=== PATIENT | male | born 1970 | race Hispanic/Latino ===

== ENCOUNTER → 2023-02-03 | Outpatient (CLI) | payer MEDICARE ==
[2023-02-03 14:25] LABS: BASOPHILS % (AUTO) 0.9 % (0.0-5.0); EOSINOPHILS % (AUTO) 7.9 % (0.0-8.0); HEMATOCRIT 38.7 % (42-54); LYMPHOCYTES % (AUTO) 19.3 % (21.0-51.0); MEAN CORPUSCULAR HEMOGLOBIN 32.9 pg (27.0-33.0); MEAN CORPUSCULAR HGB CONC 33.1 g/dL (32.0-36.0); MEAN CORPUSCULAR VOLUME 99.5 fL (79-99); MONOCYTES % (AUTO) 10.7 % (3.0-13.0); NEUTROPHILS % (AUTO) 60.9 % (40.0-77.0); PLATELET COUNT (AUTO) 153 K/uL (130-400); RED BLOOD CELL COUNT(AUTO) 3.89 MIL/uL (4.50-6.20); RED CELL DISTRIBUTION WIDTH 13.1 % (11.0-15.5); WHITE BLOOD COUNT (AUTO) 6.5 K/uL (4.8-10.8)
[2023-02-03 14:37] LABS: INR 0.93 (0.85-1.15); PROTHROMBIN TIME 10.1 SEC (9.6-11.6)
[2023-02-03 14:38] LABS: PARTIAL THROMBOPLASTIN TIME 30.9 SEC (26.3-35.5)
[2023-02-03 14:40] LABS: ALBUMIN 2.7 g/dL (3.5-5.0); CREATININE 1.6 mg/dL (0.5-1.5); POTASSIUM 4.8 mmol/L (3.5-5.1)
== END | disposition home or self-care (01) ==
LOC: LAB 13:36
PROVIDERS: ATTEND Internal Medicine
DX: R93.5 Abnormal findings on diagnostic imaging of other abdominal regions, including retroperitoneum (principal); Z01.810 Encounter for preprocedural cardiovascular examination; K74.60 Unspecified cirrhosis of liver; R18.8 Other ascites
CPT/HCPCS: 36415; 80053; 82105; 85025; 85610; 85730

== ENCOUNTER → 2023-02-08 | Outpatient (CLI) | payer MEDICARE ==
[~2023-02-08] MED LIST: GADOTERATE MEGLUMINE 10 MMOL/20 ML VIAL IV ONE
== END | disposition home or self-care (01) ==
LOC: EDUNIT# 10-31 13:00 → RAH 08:57
PROVIDERS: ATTEND Internal Medicine
DX: K76.89 Other specified diseases of liver (principal); K63.89 Other specified diseases of intestine; R16.1 Splenomegaly, not elsewhere classified; R18.8 Other ascites; R93.2 Abnormal findings on diagnostic imaging of liver and biliary tract
CPT/HCPCS: 74183; A9575

== ENCOUNTER 2024-07-05 13:20 | Emergency (ER) | payer MEDICARE ==
[~2024-07-05] VITALS: Ht 162.6 cm; Wt 64.9 kg
[2024-07-05 14:05] LABS: HEMATOCRIT 31.3 % (42-54); MEAN CORPUSCULAR HEMOGLOBIN 33.1 pg (27.0-33.0); MEAN CORPUSCULAR HGB CONC 32.6 g/dL (32.0-36.0); MEAN CORPUSCULAR VOLUME 101.6 fL (79-99); PLATELET COUNT (AUTO) 107 K/uL (130-400); RED BLOOD CELL COUNT(AUTO) 3.08 MIL/uL (4.50-6.20); RED CELL DISTRIBUTION WIDTH 13.8 % (11.0-15.5); WHITE BLOOD COUNT (AUTO) 5.3 K/uL (4.8-10.8)
[2024-07-05 14:19] LABS: INR 0.98 (0.85-1.15); PROTHROMBIN TIME 10.6 SEC (9.6-11.6)
[2024-07-05 14:20] LABS: PARTIAL THROMBOPLASTIN TIME 29.9 SEC (26.3-35.5)
[2024-07-05] MEDS: ALBUMIN (HUMAN) 25% 200 ML IV SCH (14:22)
[2024-07-05 14:26] LABS: ALBUMIN 2.2 g/dL (3.5-5.0); CREATININE 1.6 mg/dL (0.5-1.3); POTASSIUM 3.8 mmol/L (3.5-5.1); TOTAL PROTEIN, SERUM 6.9 g/dL (6.0-8.3)
--- NOTE | 2024-07-05 14:29 | HMCIMG ---
US ABDOMINAL PARACENTESIS IR REASON: paracentesis TECHNIQUE: Limited 4 quadrant ultrasound was performed. Largest ascites pocket was identified in the left lower quadrant and overlying skin marked for paracentesis. IMPRESSION: 1. Ultrasound guidance for paracentesis procedure.
[2024-07-05] MEDS ORDERED: ALBUMIN (HUMAN) 25% 200 ML IV SCH (15:00)
[2024-07-05 15:03] VITALS: BP 161/68; PULSE 104; RESP 16; TEMP 97.9; O2SAT 100
[2024-07-05] MEDS: ALBUMIN (HUMAN) 25% 100 ML IV PRN (15:41)
[2024-07-05] MEDS: ALBUMIN (HUMAN) 25% 100 ML IV ONE (15:42)
--- NOTE | 2024-07-05 15:46 | ERN ---
General Chief Complaint: Shortness of Breath Stated Complaint: SOB Time Seen by MD: 13:29 Source: patient History of Present Illness Initial Comments This is a case of a 53-year-old male with a past medical history of asthma, diabetes mellitus type 2, high cholesterol, hypertension, cirrhosis who presented to the ER with the complaints of abdominal distention and pain since 10 days. He mentions having experienced similar episodes in the past, but has had not any in the last year and a half. He has not undergone any paracentesis or consulted any doctors in the past year regarding this condition. However over the last 10 days, he has noticed increased abdominal distention, along with intermittent right upper quadrant pain mainly after eating and generalized itching throughout his body. He denies fever, chills, headaches, chest pain, palpitations, nausea, vomiting, diarrhea, burning sensation when urinating or increased frequency of urination. Vitals temperature 97.9, pulse rate 104, respiratory rate 16, blood pressure 161/68, SpO2 100% on room air. Allergies: Coded Allergies: iodine (Unverified Allergy, Severe, SWELLING, 07/05/24) Past Medical History Past Medical History: Asthma, Diabetes-Type II, High Cholesterol, Hypertension, Liver Disease Past Surgical History: Other Surgical History Other: ABD HERNIA REPAIR ROS Dictation Constitutional: No appetite loss, No fevers, chills , No night sweats, No weakness, fatigue, itching all over the body Neck: No swelling. pain or stiffness Respiratory: No cough, shortness of breath, wheezing Cardiovascular: No chest pain,, palpitations, dyspnea, No edema Gastrointestinal: Intermittent right upper quadrant pain No nausea, vomiting, No diarrhea, constipation Genitourinary: No painful urination, No blood in urine, No urinary incontinence, No frequency or urgency Musculoskeletal: No joint pain, muscle pain, swelling or stiffness, Neurological: No numbness, tingling, No weakness, tremors or seizures Psychiatric: : No depression, No anxiety, No sleep disturbance, No Memory changes Physical Exam Physical Exam Dictation General: Alert & Oriented, No acute distress. EENT: No conjunctival redness or discharge noted . Neck: Non-tender, No jugular vein distention, No lymphadenopathy, No thyromegaly, Supple. Respiratory: Lungs are clear to auscultation, Respirations are non-labored, Breath sounds are equal, Cardiovascular: Normal rate, Normal rhythm, No murmur, Good pulses equal in all extremities, Gastrointestinal: Soft, mild tenderness over right upper quadrant area, Non- distended, Normal bowel sounds, No organomegaly, _. Musculoskeletal: No decreased range of motion, no decreased strength, no deformity and no abnormal gait Integumentary: Warm, Dry, Oil Trough, Intact, No pallor, No rash. Neurologic: Alert, Oriented x4, Normal sensory, No focal defects Psychiatric: Cooperative, Appropriate mood & affect, Normal judgement, Non- suicidal. Results Laboratory and Microbiology Lab and Micro Result Laboratory Tests Test 07/05/24 13:57 07/05/24 15:30 White Blood Count 5.3 K/uL (4.8-10.8) Red Blood Count 3.08 MIL/uL (4.50-6.20) L Hemoglobin 10.2 g/dL (14.0-18.0) L Hematocrit 31.3 % (42-54) L Mean Corpuscular Volume 101.6 fL (79-99) H Mean Corpuscular Hemoglobin 33.1 pg (27.0-33.0) H Mean Corpuscular Hemoglobin Concent 32.6 g/dL (32.0-36.0) Red Cell Distribution Width 13.8 % (11.0-15.5) Platelet Count 107 K/uL (130-400) L Mean Platelet Volume 12.0 fL (7.5-10.5) H Immature Granulocyte % (Auto) 0.2 % (0-1) Neutrophils (%) (Auto) 64.5 % (40.0-77.0) Lymphocytes (%) (Auto) 16.7 % (21.0-51.0) L Monocytes (%) (Auto) 8.9 % (3.0-13.0) Eosinophils (%) (Auto) 8.7 % (0.0-8.0) H Basophils (%) (Auto) 1.0 % (0.0-5.0) Neutrophils # (Auto) 3.2 K/uL (1.8-7.7) Lymphocytes # (Auto) 0.8 K/uL (1.0-4.8) L Monocytes # (Auto) 0.4 K/uL (0.1-1.0) Eosinophils # (Auto) 0.43 K/uL (0.00-0.70) Basophils # (Auto) 0.05 K/uL (0.00-0.20) Absolute Immature Granulocyte (auto 0.01 K/uL (0-1) Nucleated Red Blood Cells 0.0 % (0.0-0.19) Prothrombin Time 10.6 SEC (9.6-11.6) Prothromb Time International Ratio 0.98 (0.85-1.15) Activated Partial Thromboplast Time 29.9 SEC (26.3-35.5) Sodium Level 138 mmol/L (136-145) Potassium Level 3.8 mmol/L (3.5-5.1) Chloride Level 107 mmol/L (101-111) Carbon Dioxide Level 22 mmol/L (21-32) Blood Urea Nitrogen 17 mg/dL (7-18) Creatinine 1.6 mg/dL (0.5-1.3) H Glomerular Filtration Rate Calc 51 mL/min (>90) Random Glucose 162 mg/dL (70-105) H Total Calcium 8.6 mg/dL (8.5-10.1) Total Bilirubin 1.0 mg/dL (0.2-1.0) Direct Bilirubin 0.5 mg/dL (0.0-0.3) H Aspartate Amino Transf (AST/SGOT) 53 U/L (10-37) H Alanine Aminotransferase (ALT/SGPT) 40 U/L (12-78) Alkaline Phosphatase 499 U/L (50-136) H Total Protein 6.9 g/dL (6.0-8.3) Albumin 2.2 g/dL (3.5-5.0) L Body Fluid Source ASCITES Body Fluid Volume 8000 mL Body Fluid Color YELLOW (LT YELLOW) Body Fluid Supernatant Appearance SLIGHTLY CLOUDY (CLEAR) Body Fluid WBC 56 /cu. mm. Body Fluid RBC 0 /cu. mm. Body Fluid Total Protein < 2.0 g/dL Body Fluid Albumin < 0.6 g/dL Labs Reviewed?: Yes EKG/XRAY/US/CT/MRI CT Scan Comment PROCEDURE: ABD PEL WO - CT ABDOMEN/PELVIS W/O CONTRAST CT ABDOMEN/PELVIS W/O CONTRAST REASON: Suspected biliary obstruction, gallstones, cirrhosis COMPARISON: None. FINDINGS: Lung bases are clear. There is nodular hepatic surface contour. There is splenomegaly. There is small to moderate volume of ascites. These findings suggest probable cirrhosis.. There are no focal liver lesions. Kidneys appear unremarkable.. Pancreas appears unremarkable. Gallbladder is contracted. There are no visible stones. Bowel loops appear unremarkable. This includes normal appearance of the appendix There is no evidence of free fluid or intraperitoneal air. There are no focal fluid collections. Aorta and retroperitoneum appear normal as do pelvic soft tissue structures. The anterior abdominal wall is intact. Osseous structures appear unremarkable. IMPRESSION: 1. Nodular liver, splenomegaly and moderate ascites suggesting cirrhosis. 2. Gallbladder is contracted, there are no visible gallstones. 3. Otherwise unremarkable exam. MDM MDM Potential differential diagnoses include: Cirrhosis Hepatitis Assessment: We will order CBC was done in order to to rule any anemia, infections and to evaluate the overall health of the patient. CMP was ordered in order to assess various electrolytes, kidney function, liver function ,protein levels and blood glucose levels, CT of the abdomen/pelvis to rule out any acute conditions and we will administer medications according to the patient's complaint. We will order morphine 4 mg IV for adequate pain control. I will re-evaluate the patient after treatment and diagnostic exams have returned to determine whether they require further testing, can be safely discharged home, or need admission for further treatment and evaluation. Given the social determinants of health affecting care, including literacy, access to medical care, prescription drug management, and [id number] drugs, I will ensure that treatment plans are tailored accordingly. Revaluation : Patient tolerated the paracentesis very well he states that he is breathing more easily now. His labs are unremarkable, if in his bilirubin in his within normal range. He has no signs of infection. CT scan shows no obvious masses in the liver. Patient has a ascites. Patient also has calcification in all of his major arteries including a celiac splenic aorta internal iliacs superficial femoral and deep femoral arteries. We have ordered hepatitis-C and B serologies once those are back we will discharge the patient. Disposition: The patient does not need to be admitted to the hospital however he does need to follow up with his primary care physician and also a director staffing. It is not clear why he has ascites improved and then decompensated. The states that he has not resumed drinking. Advised to follow up with PCP within 2-3 days Consult director staffing for further workup and management within 1 week Avoid salty foods like canned soups, processed meats and fast foods Avoid alcohol Avoids hepatotoxic medications like NSAIDs [ibuprofen, naproxen] Advised to call 911 or return to ER in case of exacerbation of current symptoms or new symptoms like shortness of breath, vomiting, black, tarry stools, confusion, drowsiness and behavioral changes ED Course Orders Procedure Category Date Status Time Pt And Ptt LAB 07/05/24 Complete 13:47 Comprehensive LAB 07/05/24 Complete Metabolic Panel 13:47 Albumin (Human) 25% PHA 07/05/24 Complete (Plasbumin-25) 14:00 Us Abdominal US 07/05/24 Resulted Paracentesis Ir 14:05 Cbc With Differential LAB 07/05/24 Complete 13:57 Albumin (Human) 25% PHA 07/05/24 Complete (Albumin (Human) 25% 15:00 Body Fluid Cell Count LAB 07/05/24 In Process 15:08 Total Protein,Body LAB 07/05/24 In Process Fluid 15:08 Albumin Body Fluid LAB 07/05/24 In Process 15:08 Ct Abdomen/Pelvis W/O CT 07/05/24 Resulted Contrast 15:21 Albumin (Human) 25% PHA 07/05/24 Complete (Plasbumin-25) 15:33 Albumin (Human) 25% PHA 07/05/24 In Process (Plasbumin-25) 16:00 Acute Hepatitis Panel LAB 07/05/24 In Process 15:47 Bilirubin,Direct LAB 07/05/24 Complete 13:57 Aerobic Culture MYLA 07/05/24 Logged 16:01 Anaerobic Culture MYLA 07/05/24 Logged 16:01 Current Medications Medications (Trade) Dose Ordered Sig/Suresh Route PRN Reason Start Time Stop Time Status Last Admin Dose Admin Albumin Human 100 ml @ 100 mls/hr AD PRN IV INCREASED BLOOD PRESSURE 07/05/24 16:00 07/06/24 15:59 07/05/24 15:41 Albumin Human 100 ml @ As Directed STK-MED ONCE IV 07/05/24 15:33 07/05/24 15:33 DC Albumin Human 200 ml @ 0 mls/hr AD IV 07/05/24 15:00 07/05/24 15:03 DC Albumin Human 200 ml @ 0 mls/hr ONCE IV 07/05/24 14:00 07/05/24 15:03 DC 07/05/24 14:22 Vital Signs Date Time Temp Pulse Resp B/P (MAP) Pulse Ox O2 Delivery O2 Flow Rate FiO2 07/05/24 15:03 97.9 104 16 161/68 100 Room Air* 0 21 07/05/24 13:22 97.7 102 20 157/91 99 Room Air 07/05/24 13:22 97.7 102 20 157/91 99 Room Air* 0 21 Procedure Dictation Procedure: paracentesis Indication: Ascites for diagnostic, therapeutic purposes and abdominal distention relief Consent:Consent was obtained from the patient after discussing the risks, benefits, and alternatives to the procedure the patient understood and agreed to proceed Procedure details The patient was placed in the supine position.The abdomen was examined and left lower quadrant was chosen for paracentesis through ultrasound. The area was marked, cleaned with antiseptic solution and draped in a sterile manner Local anesthesia was achieved with 1% lidocaine, which was infiltrated into the skin, subcutaneous tissue and peritoneum at the chosen puncture site A needle was connected to a syringe was used to enter the peritoneal cavity. Once fluid was aspirated the catheter was advanced over the needle and secured in place Around 10.4L of ascitic fluid was drained without complication.The fluid was str aw-colored, clear. Fluid samples were sent for cell count, albumin, cytology and culture Catheter was removed and the sterile dressing was applied. Complications: No immediate complications were noted DX & DISP Disposition: Discharge Departure Impression: Primary Impression: Liver cirrhosis Additional Impression: Ascites Condition: Stable Referrals: HARDY HENDERSON MD (PCP) ATTESTATION BY PHYSICIAN I have seen and examined the patient. I reviewed the documentation, medical decision making, and treatment plan as noted by the resident above. I agree with the findings and plan of care. Pt with tense ascites, relieved by paracentesis. Needs to F/U with . ARTEM GUZMAN MD, PRIYANKA MD Jul 05, 2024 15:46 ARTEM GUZMAN MD Jul 05, 2024 16:27
--- NOTE | 2024-07-05 16:27 | HMCIMG ---
CT ABDOMEN/PELVIS W/O CONTRAST REASON: Suspected biliary obstruction, gallstones, cirrhosis COMPARISON: None. FINDINGS: Lung bases are clear. There is nodular hepatic surface contour. There is splenomegaly. There is small to moderate volume of ascites. These findings suggest probable cirrhosis.. There are no focal liver lesions. Kidneys appear unremarkable.. Pancreas appears unremarkable. Gallbladder is contracted. There are no visible stones. Bowel loops appear unremarkable. This includes normal appearance of the appendix There is no evidence of free fluid or intraperitoneal air. There are no focal fluid collections. Aorta and retroperitoneum appear normal as do pelvic soft tissue structures. The anterior abdominal wall is intact. Osseous structures appear unremarkable. IMPRESSION: 1. Nodular liver, splenomegaly and moderate ascites suggesting cirrhosis. 2. Gallbladder is contracted, there are no visible gallstones. 3. Otherwise unremarkable exam. CT was performed with one or more following dose reduction techniques: automated exposure control, adjustment of the mA and kv according to patient's size, or use of a iterative reconstruction technique.
[2024-07-05 16:45] LABS: BASOPHILS # (AUTO) 0.05 K/uL (0.00-0.20); EOSINOPHILS # (AUTO) 0.43 K/uL (0.00-0.70); EOSINOPHILS % (AUTO) 8.7 % (0.0-8.0); IMMATURE GRANULOCYTE ABSOLUTE 0.01 K/uL (0-1); LYMPHOCYTES # (AUTO) 0.8 K/uL (1.0-4.8); LYMPHOCYTES % (AUTO) 16.7 % (21.0-51.0); MONOCYTES # (AUTO) 0.4 K/uL (0.1-1.0); MONOCYTES % (AUTO) 8.9 % (3.0-13.0); NEUTROPHILS # (AUTO) 3.2 K/uL (1.8-7.7); NEUTROPHILS % (AUTO) 64.5 % (40.0-77.0)
[2024-07-05 17:19] LABS: ALBUMIN,BODY FLUID < 0.6 g/dL; TOTAL PROTEIN,BODY FLUID < 2.0 g/dL
[2024-07-05 17:27] LABS: APPEARANCE BODY FLUID SLIGHTLY CLOUDY (CLEAR); COLOR,BODY FLUID YELLOW (LT YELLOW); SPECIMENTYPE,BODY FLUID ASCITES
[2024-07-05 17:28] LABS: TOTAL VOLUME,BODY FLUID 8000 mL
[2024-07-05 17:35] LABS: BODY FLUID RBC 0 /cu. mm.; BODY FLUID WBC 56 /cu. mm.
[2024-07-05 18:24] LABS: BF LYMPHOCYTE 88 %; BF MONOCYTE 3 %; BF TOTAL CELLS COUNTED 100
[2024-07-06 04:29] LABS: HEPATITIS A IGM ANTIBODY Non-Reactive (Nonreactive); HEPATITIS B CORE IGM ANTIBODY Non-Reactive (Negative); HEPATITIS B SURFACE ANTIGEN Non-Reactive (Nonreactive); HEPATITIS C ANTIBODY Non-Reactive (Nonreactive)
== END 2024-07-05 18:09 | disposition home or self-care (01) ==
LOC: EDH 13:20
DX: R18.8 Other ascites (principal); K74.60 Unspecified cirrhosis of liver; E78.00 Pure hypercholesterolemia, unspecified; I10 Essential (primary) hypertension; J45.909 Unspecified asthma, uncomplicated; E11.9 Type 2 diabetes mellitus without complications; Z88.8 Allergy status to other drugs, medicaments and biological substances; Z91.041 Radiographic dye allergy status; Z98.890 Other specified postprocedural states
CPT/HCPCS: 96365; 96366; 99285; 82248; 84157; 80053; 85025; 89051; 85610; 85730; 87071; 87205; 82042; 80074; 36415; 74176; 49083; P9046 ×2; C1729

== ENCOUNTER 2024-07-19 00:55 | Inpatient (IN) | payer MEDICARE ==
[~2024-07-19] VITALS: Ht 162.6 cm; Wt 58.2 kg
[2024-07-19] VITALS (16 sets, daily range): BP systolic 130–172; BP diastolic 72–103; PULSE 99–109; RESP 16–20; TEMP 97.7–98.1; O2SAT 100
[2024-07-19 01:23] LABS: BASOPHILS # (AUTO) 0.04 K/uL (0.00-0.20); BASOPHILS % (AUTO) 0.5 % (0.0-5.0); EOSINOPHILS # (AUTO) 0.47 K/uL (0.00-0.70); EOSINOPHILS % (AUTO) 6.1 % (0.0-8.0); HEMATOCRIT 30.2 % (42-54); IMMATURE GRANULOCYTE ABSOLUTE 0.03 K/uL (0-1); LYMPHOCYTES # (AUTO) 1.1 K/uL (1.0-4.8); LYMPHOCYTES % (AUTO) 14.6 % (21.0-51.0); MEAN CORPUSCULAR HEMOGLOBIN 33.2 pg (27.0-33.0); MEAN CORPUSCULAR HGB CONC 32.5 g/dL (32.0-36.0); MEAN CORPUSCULAR VOLUME 102.4 fL (79-99); MONOCYTES # (AUTO) 0.8 K/uL (0.1-1.0); MONOCYTES % (AUTO) 10.2 % (3.0-13.0); NEUTROPHILS # (AUTO) 5.3 K/uL (1.8-7.7); NEUTROPHILS % (AUTO) 68.2 % (40.0-77.0); PLATELET COUNT (AUTO) 144 K/uL (130-400); RED BLOOD CELL COUNT(AUTO) 2.95 MIL/uL (4.50-6.20); WHITE BLOOD COUNT (AUTO) 7.7 K/uL (4.8-10.8)
[2024-07-19 01:46] LABS: B-TYPE NATRIURETIC PEPTIDE 72 pg/mL (0-100)
[2024-07-19 01:47] LABS: CREATININE 3.2 mg/dL (0.5-1.3); POTASSIUM 3.6 mmol/L (3.5-5.1)
[2024-07-19] MEDS: morPHINE 2 MG SYG IVP ONE (02:04)
[2024-07-19 02:34] LABS: INR 0.97 (0.85-1.15); PROTHROMBIN TIME 10.5 SEC (9.6-11.6)
[2024-07-19 02:36] LABS: PARTIAL THROMBOPLASTIN TIME 32.3 SEC (26.3-35.5)
[2024-07-19] MEDS: cefTRIAXone 1G VIAL IVPB ONE (04:18)
[2024-07-19] MEDS: ALBUMIN (HUMAN) 25% 100 ML IV PRN (04:23)
[2024-07-19] MEDS ORDERED: LACTULOSE 20 GM/30 ML UDCUP PO PRN (04:30)
[2024-07-19] MEDS ORDERED: acetaMINOPHEN 650 MG SUPPOSITORY RC PRN (04:30)
[2024-07-19] MEDS ORDERED: hydrALAZine 20MG/ML VIAL IV PRN (04:30)
[2024-07-19] MEDS ORDERED: doCUSate SODIUM 100 MG CAP PO PRN (04:30)
[2024-07-19] MEDS ORDERED: TEMAZepam 15 MG CAPSULE PO PRN (04:30)
[2024-07-19] MEDS: acetaMINOPHEN 325 MG TAB PO PRN (05:35)
[2024-07-19] MEDS: INSULIN humuLIN R 100 UNIT/ML 3ML SQ SCH (05:57)
[2024-07-19] MEDS: LACTULOSE 20 GM/30 ML UDCUP PO SCH (08:17)
[2024-07-19] MEDS: CEFTRIAXONE 2GM VIAL IVPB SCH (08:17)
[2024-07-19] MEDS: furoSEMIDE 40MG VIAL IV SCH (08:35)
[2024-07-19] MEDS ORDERED: ALBUMIN (HUMAN) 25% 200 ML IV ONE (09:48)
[2024-07-19 13:06] LABS: BODY FLUID RBC 0 /cu. mm.; BODY FLUID WBC 92 /cu. mm.
[2024-07-19 13:10] LABS: APPEARANCE BODY FLUID CLEAR (CLEAR); SPECIMENTYPE,BODY FLUID ASCITES
[2024-07-19 13:12] LABS: COLOR,BODY FLUID LT YELLOW (LT YELLOW); TOTAL VOLUME,BODY FLUID 1200 mL
[2024-07-19 14:23] LABS: BF LYMPHOCYTE 12 %; BF MESOTHELIAL 15 %; BF TOTAL CELLS COUNTED 25
[2024-07-19 18:47] LABS: APPEARANCE,URINE CLEAR (CLEAR); BILIRUBIN,URINE NEGATIVE (NEGATIVE); COLOR,URINE YELLOW (YELLOW); GLUCOSE, URINE (UA) NEGATIVE (NEGATIVE); KETONES,URINE NEGATIVE (NEGATIVE); LEUKOCYTE ESTERASE ,URINE NEGATIVE Leu/uL (NEGATIVE); NITRATE,URINE NEGATIVE (NEGATIVE); PH,URINE 5.5 (5.0-8.0); PROTEIN,URINE 100 mg/dL (NEGATIVE); UROBILINOGEN,URINE 0.2 mg/dL (0.2-1.0)
[2024-07-19 18:55] LABS: ADD UA MICROSCOPIC YES
[2024-07-19 18:57] LABS: MUCUS,URINE RARE LPF (None Seen); OTHER CASTS, URINE 1 /LPF (None Seen); RBC,URINE 0-1 /HPF (0-1); SQUAMOUS EPITHELIAL CELL,UR RARE /HPF (0-2)
[2024-07-19] MEDS: HYDROcodone/APAP 5/325 1 TAB TABLET PO PRN (20:31)
[2024-07-20] VITALS (8 sets, daily range): BP systolic 123–169; BP diastolic 67–88; PULSE 95–106; RESP 16–19; TEMP 97.2–98.5; O2SAT 96–99
[2024-07-20 05:34] LABS: BASOPHILS # (AUTO) 0.07 K/uL (0.00-0.20); BASOPHILS % (AUTO) 1.1 % (0.0-5.0); EOSINOPHILS % (AUTO) 6.6 % (0.0-8.0); HEMATOCRIT 32.2 % (42-54); IMMATURE GRANULOCYTE ABSOLUTE 0.02 K/uL (0-1); LYMPHOCYTES # (AUTO) 0.9 K/uL (1.0-4.8); LYMPHOCYTES % (AUTO) 14.4 % (21.0-51.0); MEAN CORPUSCULAR HEMOGLOBIN 32.6 pg (27.0-33.0); MEAN CORPUSCULAR VOLUME 101.9 fL (79-99); MONOCYTES # (AUTO) 0.7 K/uL (0.1-1.0); NEUTROPHILS # (AUTO) 4.1 K/uL (1.8-7.7); NEUTROPHILS % (AUTO) 66.6 % (40.0-77.0); PLATELET COUNT (AUTO) 125 K/uL (130-400); RED BLOOD CELL COUNT(AUTO) 3.16 MIL/uL (4.50-6.20); RED CELL DISTRIBUTION WIDTH 13.6 % (11.0-15.5); WHITE BLOOD COUNT (AUTO) 6.1 K/uL (4.8-10.8)
[2024-07-20 05:54] LABS: CREATININE 2.3 mg/dL (0.5-1.3); MAGNESIUM 2.2 mg/dL (1.80-2.40); PHOSPHORUS 3.9 mg/dL (2.5-4.9); POTASSIUM 3.7 mmol/L (3.5-5.1)
[2024-07-20] MEDS: ondanSETRON 4MG INJ IVP PRN (14:10)
[2024-07-20] MEDS ORDERED: DiphenhydrAMINE HCL 25 MG CAPSULE PO PRN ×2 (18:00→19:30)
[2024-07-21] VITALS: BP 154/67; PULSE 99; RESP 16; TEMP 98.2
[2024-07-21 04:00] VITALS: BP 158/67; PULSE 98; RESP 20; TEMP 98
== END 2024-07-21 06:40 | disposition left against medical advice (07) | DRG 433 ==
LOC: EDH 00:55 → EDHIP 04:18 → 4CH 05:00
PROVIDERS: ADMIT Internal Medicine; ATTEND Internal Medicine
PROC: 0W9G30Z Drainage of Peritoneal Cavity with Drainage Device, Percutaneous Approach (ICD-10-PCS; principal; 2024-07-19)
DX: K74.60 Unspecified cirrhosis of liver (principal); N17.9 Acute kidney failure, unspecified; R18.8 Other ascites; G89.29 Other chronic pain; D63.8 Anemia in other chronic diseases classified elsewhere; N18.9 Chronic kidney disease, unspecified; E11.22 Type 2 diabetes mellitus with diabetic chronic kidney disease; I12.9 Hypertensive chronic kidney disease with stage 1 through stage 4 chronic kidney disease, or unspecified chronic kidney disease; Z53.29 Procedure and treatment not carried out because of patient's decision for other reasons; E78.00 Pure hypercholesterolemia, unspecified; J45.909 Unspecified asthma, uncomplicated; E11.65 Type 2 diabetes mellitus with hyperglycemia; K59.00 Constipation, unspecified; Z88.8 Allergy status to other drugs, medicaments and biological substances; Z79.899 Other long term (current) drug therapy
CPT/HCPCS: 36415; 49083; 71045; 74176; 80048; 81001; 82140; 82948; 83735; 83880; 84100; 84484; 85025; 85610; 85730; 87040; 87071; 87205; 89051; 93005; 96365; 96374; 96375; C1729; G0378; J0696; J1940; J2270; J2405; P9046

== ENCOUNTER 2025-04-29 15:20 | Inpatient (IN) | payer MEDICARE ==
[~2025-04-29] VITALS: Ht 165.1 cm; Wt 62.1 kg
[2025-04-29 15:22] VITALS: TEMP 98.4
[2025-04-29 15:30] VITALS: BP 181/79; PULSE 77; RESP 19; O2SAT 97
[2025-04-29] MEDS ORDERED: BRESALTEC IH (15:32)
[2025-04-29] MEDS ORDERED: PANT40TA54 PO (15:32)
[2025-04-29] MEDS ORDERED: SPIR50TA5 PO (15:32)
[2025-04-29] MEDS ORDERED: METO-408 PO (15:32)
[2025-04-29] MEDS ORDERED: OXYC10TA48 PO (15:32)
[2025-04-29] MEDS ORDERED: HYDR-3421 PO (15:32)
[2025-04-29] MEDS ORDERED: ERGO500093 PO (15:32)
[2025-04-29] MEDS ORDERED: AEC81 PO (15:32)
[2025-04-29] MEDS ORDERED: FURO40TA5 PO (15:32)
--- NOTE | 2025-04-29 15:45 | NUR ---
PT PRESENTED PA-C WITH DAY PATIENT PROCEDURE FORM STATING HE HAS A PROCEDURE SCHEDULED FOR TOMORROW MORNING AND PER DR PEREZ, THE PT NEEDS TO HAVE ABDOMINAL FLUID PRESENT. PT ARRIVED DUE TO ABDOMINAL DISTENTION AND IS SEEKING A PARACENTESIS PROCEDURE TO BE DONE AT THIS TIME. DR ASHTON TALKED TO THE PT ABOUT POSSIBLE RISKS OF LEAVING TODAY AND PT STATED HE WOULD LIKE TO STAY TO GET ADMITTED.
[2025-04-29 16:14] LABS: IMMATURE GRANULOCYTE ABSOLUTE 0.01 K/uL (0-1); NUCLEATED RED BLOOD CELLS 0.0 % (0.0-0.19); PLATELET COUNT (AUTO) 129 K/uL (130-400); RED BLOOD CELL COUNT(AUTO) 2.68 MIL/uL (4.50-6.20); RED CELL DISTRIBUTION WIDTH 13.4 % (11.0-15.5); WHITE BLOOD COUNT (AUTO) 4.9 K/uL (4.8-10.8)
[2025-04-29 16:26] LABS: CREATININE 2.0 mg/dL (0.5-1.3); GLOMERULAR FILTR. RATE CALC 39.0 mL/min (>90); GLUCOSE,RANDOM 117.0 mg/dL (70-105); SODIUM SERUM 141.0 mmol/L (136-145); UREA NITROGEN, BLOOD 29.0 mg/dL (7-18)
[2025-04-29 16:39] LABS: ASPARTATE AMINOTRANSFERASE 57.0 U/L (10-37); TOTAL PROTEIN, SERUM 7.0 g/dL (6.0-8.3)
--- NOTE | 2025-04-29 17:18 | HP ---
[facility] HISTORY AND PHYSICAL Date of Service: Apr 29, 2025 Time of Service: 17:14 HISTORY OF PRESENT ILLNESS: [ ] ADMISSION DATE 04/01/2025 PCP Olman Singh MD Chief complaints profound abdominal distention secondary to ascites This is a 54-year-old male that presents in ED with chief complaints of abdominal distention secondary to ascites underlying history of liver cirrhosis. Last paracentesis 1 months ago then he left AMA. He is here today requesting paracentesis. Stated his abdomen distention causing pain when he ambulates. ER administered Morphine. The patient was seen in ED HW D on room air, he is already stated he going to leave if he has to stay overnight in ED. He denies abd pain , shortness of breath , and chest pain. 184: The patient eloped from facility REVIEW OF SYSTEMS A 12 point ROS was obtained all relevant positives were documented otherwise ROS negative PAST MEDICAL HISTORY: [ ]liver cirrhosis HTN, DM PAST SURGICAL HISTORY: [ ]paracentitis multiple PAST SOCIAL HISTORY: [ ]denies smoking tobacco product or ETOH use Lives with Mother FAMILY HISTORY: [ ] Coded Allergies: iodine (Unverified Allergy, Severe, SWELLING, 07/05/24) PHYSICAL EXAM GENERAL APPEARANCE: The patient is awake, alert, and oriented, in no acute cardiopulmonary distress. NEUROLOGICAL: Cranial nerves II-XII grossly intact. Motor is 5/5 in bilateral upper and lower extremities proximal to distal. No sensory deficits. HEENT: Face is symmetric. Pupils are equal and reactive. Extraocular movements are intact. NECK: Supple. No JVD. No thyromegaly. No submental, submandibular, pre-/ postauricular, occipital or supraclavicular lymphadenopathy. CHEST: Normal chest expansion. No Telemetry. LUNGS: Absence of any rales, rhonchi or any wheezing. CARDIOVASCULAR: Regular. S1 and S2 normal. No appreciable rubs, murmurs or gallops. ABDOMEN: Soft, nontender, and nondistended. There is no rebound, voluntary guarding, or rigidity. : Deferred. No [place]. EXTREMITIES: Non-edematous and not cyanotic. No clubbing. Good capillary refill. SKIN: No skin breakdown. Vital Sign (Last 24 Hours) 04/29/25 04/29/25 15:22 15:30 Temp 98.4 Pulse 77 Resp 19 B/P (MAP) 181/79 Pulse Ox 97 O2 Delivery Room Air* O2 Flow Rate 0 FiO2 21 LABS: Laboratory: Test 04/29/25 16:00 Range/Units White Blood Count 4.9 4.8-10.8 K/uL Red Blood Count 2.68 L 4.50-6.20 MIL/uL Hemoglobin 9.0 L 14.0-18.0 g/dL Hematocrit 27.5 L 42-54 % Mean Corpuscular Volume 102.6 H 79-99 fL Mean Corpuscular Hemoglobin 33.6 H 27.0-33.0 pg Mean Corpuscular Hemoglobin Concent 32.7 32.0-36.0 g/dL Red Cell Distribution Width 13.4 11.0-15.5 % Platelet Count 129 L 130-400 K/uL Mean Platelet Volume 12.8 H 7.5-10.5 fL Immature Granulocyte % (Auto) 0.2 0-1 % Neutrophils (%) (Auto) 67.8 40.0-77.0 % Lymphocytes (%) (Auto) 15.2 L 21.0-51.0 % Monocytes (%) (Auto) 9.5 3.0-13.0 % Eosinophils (%) (Auto) 6.7 0.0-8.0 % Basophils (%) (Auto) 0.6 0.0-5.0 % Neutrophils # (Auto) 3.4 1.8-7.7 K/uL Lymphocytes # (Auto) 0.8 L 1.0-4.8 K/uL Monocytes # (Auto) 0.5 0.1-1.0 K/uL Eosinophils # (Auto) 0.33 0.00-0.70 K/uL Basophils # (Auto) 0.03 0.00-0.20 K/uL Absolute Immature Granulocyte (auto 0.01 0-1 K/uL Nucleated Red Blood Cells 0.0 0.0-0.19 % Sodium Level 141 136-145 mmol/L Potassium Level 3.7 3.5-5.1 mmol/L Chloride Level 107 101-111 mmol/L Carbon Dioxide Level 26 21-32 mmol/L Blood Urea Nitrogen 29 H 7-18 mg/dL Creatinine 2.0 H 0.5-1.3 mg/dL Glomerular Filtration Rate Calc 39 >90 mL/min Random Glucose 117 H 70-105 mg/dL Total Calcium 8.2 L 8.5-10.1 mg/dL Total Bilirubin 1.7 H 0.2-1.0 mg/dL Direct Bilirubin 1.4 H 0.0-0.3 mg/dL Aspartate Amino Transf (AST/SGOT) 57 H 10-37 U/L Alanine Aminotransferase (ALT/SGPT) 36 12-78 U/L Alkaline Phosphatase 713 *H 50-136 U/L Total Protein 7.0 6.0-8.3 g/dL Albumin 1.9 L 3.5-5.0 g/dL Lipase 60 16-77 U/L DIAGNOSTICS / RADIOLOGY: [ ] ASSESSMENT: ascites secondary to liver cirrhosis POA intractable abd secondary abdomen distention POA anemia secondary to liver cirrhosis CHR STage III thrombocytopenia POA Hypertensive urgency POA non compliance with Treatment. DM with Hyperglycemia PLAN: Admit: Medical-surgical condition: Guarded Status: Full code Consulted GI Procedure IR paracentesis in am Test: Ultrasound abdomen complete Labs cbc, cmp, mag+ will monitor H/H and platelets trends to keep Hbg above 7.0 platelets: > 50,000 Monitor bleeding. Replace electrolytes as needed as per protocol to keep potassium above 4.0 magnesium 2.0. Home medications pending to be reviewed by RN nurse. Reviewed external medications: resume Lasix, spironolactone, and metoprolol succ. PRN: MEDICATIONS Tylenol 650 mg po every 4 hrs for fever zofran 4 mg IV every 6 hrs for n/v Hydralazine 5 mg IV every 4 hrs systolic pressure > 160 bowel regiment: lactulose 20 gm PO BID PRN constipation Pain management: Supportive measures: DVT ppx, GI ppx all questions answered time spent: > 35 min Supervising MD: Dr. Stack c/d This document was generated in part using voice recognition software, occasional wrong word or sound alike substitutions may have occurred due to the inherent limitations of voice recognition software. Read the chart carefully and recognize using context, where the substitutions have occurred. Although every effort was made to edit the content, airplane tester and typing errors may occur ADVANCED CARE PLANNING 1. Which of the following were discussed? Hospice Care - Yes / No Therapeutic options - Yes / No Advance Directives - Yes / No Other discussions - 2. Discussed with who? 3. Voluntary nature of this service was explained to the patient? Yes / No 4. Amount of time spent - 5. Reviewed by Physician? (if this service was performed by NPP) Yes / No ADDENDUM : LEFT AMA ATTESTATION BY PHYSICIAN I have seen and examined the patient. I reviewed the documentation, medical decision making, and treatment plan as noted by the mid-level provider above. I agree with the findings and plan of care. ABDI STACK MD, ELIZABETH NP Apr 29, 2025 17:18
[2025-04-29] MEDS ORDERED: MAGNESIUM 2GM PREMIX 50ML 50 ML IV PRN (17:30)
[2025-04-29] MEDS ORDERED: PoTASSium chl 10% ELIXIR 20MEQ 20 MEQ/15 ML UDCUP PO PRN (17:30)
[2025-04-29] MEDS ORDERED: LACTULOSE 20 GM/30 ML UDCUP PO PRN (17:30)
[2025-04-29] MEDS ORDERED: PoTASSium chloRIDE 20MEQ ER 20 MEQ ERTAB PO PRN (17:30)
--- NOTE | 2025-04-29 17:31 | ERN ---
General Chief Complaint: Abdominal Pain Stated Complaint: ABD DISTENTION ASCITES REQUIRING PARACENTITS SECON Time Seen by MD: 15:22 Time Seen by Midlevel: 15:22 Source: patient History of Present Illness Initial Comments 54-year-old presents to the emergency department due to abdominal pain and distention. Patient states he has a history of liver cirrhosis and had a paracentesis done 3 weeks ago. Patient has a procedure scheduled tomorrow at 6:00 a.m, however he was told that if he received a paracentesis today he would not have the procedure tomorrow. PMHx asthma, DM, hypercholesterolemia, HTN, cirrhosis Allergies: Coded Allergies: iodine (Unverified Allergy, Severe, SWELLING, 07/05/24) Home Meds Reported Medications Aspirin (ASPIRIN 81 MG ECTAB) 81 Mg Ectab, 81 MG PO DAILY, TAB.EC 04/29/25 [bresaltec] No Conflict Check, 2 PUFF IH AD PRN for SHORTNESS OF BREATH 04/29/25 Pantoprazole Sodium (Pantoprazole Sodium) 40 Mg Tablet.dr, 40 MG PO AM, TAB 04/29/25 Metoprolol Succinate (Metoprolol Succinate) 25 Mg Tab.er.24h, 25 MG PO AM, TAB 04/29/25 Hydroxyzine HCl (Hydroxyzine HCl) 25 Mg Tablet, 25 MG PO TID PRN for itching, TAB 04/29/25 Furosemide (Furosemide) 40 Mg Tablet, 40 MG PO HS, TAB 04/29/25 Spironolactone (Spironolactone) 50 Mg Tablet, 50 MG PO BID, TAB 04/29/25 Ergocalciferol (Vitamin D2) (Vitamin D2) 1,250 Mcg (29058 Unit) Capsule, 1250 MCG PO wed, CAP 04/29/25 Oxycodone HCl (Oxycodone HCl) 10 Mg Tablet, 10 MG PO TID PRN for PAIN, TAB 04/29/25 Past Medical History Past Medical History: Asthma, Diabetes-Type II, High Cholesterol, Hypertension, Liver Disease, Other Medical History Other: CIRRHOSIS Past Surgical History: Other Surgical History Other: ABD HERNIA REPAIR Family History Family History: Negative ROS Dictation Constitutional: Negative for fever,chills, and weight loss Eyes: Negative for injury, pain,redness, and discharge ENT: Negative for injury,pain or swelling Cardiovascular: Negative for chest pain, palpitations, and edema Respiratory: Negative for shortness of breath, cough, and wheezing, Abdomen/GI: Positive for abdominal pain and distention Negative for nausea, vomiting, diarrhea, and constipation Back: Negative for injury and pain : Negative for painful urination, bleeding or discharge MS/Extremity: Negative for injury and deformity Skin: Negative for rash, and discoloration Neuro: Negative for headache, weakness, numbness, tingling, and seizure Psych: Negative for suicide ideation, homicidal ideation, and hallucinations Physical Exam Physical Exam Dictation General: awake, alert, no acute distress Head/Face: Normocephalic, atraumatic Eyes: PERRL, EOMI, normal conjunctiva ENT: oral cavity clear, oral mucosa moist Neck: Supple, normal range of motion Cardiovascular: RRR, normal S1/S2 Respiratory: CTAB, no respiratory distress Abdomen: Generalized discomfort, distention, no guarding or rebound. Skin: Warm, dry, normal turgor, no rash MS/Extremity: Pulses equal, no cyanosis, neurovascular intact, FROM Neuro: COAx4, GCS 15, strength 5/5, CN 2-12 intact, normal cerebellar exam, normal gait Psych: Normal behavior, mood, and affect normal Results Laboratory and Microbiology Lab and Micro Result Laboratory Tests Test 04/29/25 16:00 White Blood Count 4.9 K/uL (4.8-10.8) Red Blood Count 2.68 MIL/uL (4.50-6.20) L Hemoglobin 9.0 g/dL (14.0-18.0) L Hematocrit 27.5 % (42-54) L Mean Corpuscular Volume 102.6 fL (79-99) H Mean Corpuscular Hemoglobin 33.6 pg (27.0-33.0) H Mean Corpuscular Hemoglobin Concent 32.7 g/dL (32.0-36.0) Red Cell Distribution Width 13.4 % (11.0-15.5) Platelet Count 129 K/uL (130-400) L Mean Platelet Volume 12.8 fL (7.5-10.5) H Immature Granulocyte % (Auto) 0.2 % (0-1) Neutrophils (%) (Auto) 67.8 % (40.0-77.0) Lymphocytes (%) (Auto) 15.2 % (21.0-51.0) L Monocytes (%) (Auto) 9.5 % (3.0-13.0) Eosinophils (%) (Auto) 6.7 % (0.0-8.0) Basophils (%) (Auto) 0.6 % (0.0-5.0) Neutrophils # (Auto) 3.4 K/uL (1.8-7.7) Lymphocytes # (Auto) 0.8 K/uL (1.0-4.8) L Monocytes # (Auto) 0.5 K/uL (0.1-1.0) Eosinophils # (Auto) 0.33 K/uL (0.00-0.70) Basophils # (Auto) 0.03 K/uL (0.00-0.20) Absolute Immature Granulocyte (auto 0.01 K/uL (0-1) Nucleated Red Blood Cells 0.0 % (0.0-0.19) Sodium Level 141 mmol/L (136-145) Potassium Level 3.7 mmol/L (3.5-5.1) Chloride Level 107 mmol/L (101-111) Carbon Dioxide Level 26 mmol/L (21-32) Blood Urea Nitrogen 29 mg/dL (7-18) H Creatinine 2.0 mg/dL (0.5-1.3) H Glomerular Filtration Rate Calc 39 mL/min (>90) Random Glucose 117 mg/dL (70-105) H Total Calcium 8.2 mg/dL (8.5-10.1) L Total Bilirubin 1.7 mg/dL (0.2-1.0) H Direct Bilirubin 1.4 mg/dL (0.0-0.3) H Aspartate Amino Transf (AST/SGOT) 57 U/L (10-37) H Alanine Aminotransferase (ALT/SGPT) 36 U/L (12-78) Alkaline Phosphatase 713 U/L (50-136) *H Total Protein 7.0 g/dL (6.0-8.3) Albumin 1.9 g/dL (3.5-5.0) L Lipase 60 U/L (16-77) Labs Reviewed?: Yes MDM MDM: Differential diagnosis: Abdominal pain, ascites, Rationale: 54-year-old presents to the emergency department due to abdominal pain and distention. Patient states he has a history of liver cirrhosis and had a paracentesis done 3 weeks ago. Patient has a procedure scheduled tomorrow at 6:00 a.m, however he was told that if he received a paracentesis today he would not have the procedure tomorrow. PMHx asthma, DM, hypercholesterolemia, HTN, cirrhosis The patient verbalized that he did not want the paracentesis done that way he could receive the procedure tomorrow. Labs obtained indicate anemia with hemoglobin of 9, elevated LFTs consistent with cirrhosis. Patient was administered morphine. Patient was educated on findings, diagnosis, decision for admission. Previous outside records reviewed: Old ER visits. Risk of complication and/or morbidity or mortality of patient management: None Medications-Per medication reconciliation Need for hospitalization: Patient does meet criteria for hospitalization. Need for emergency major/minor surgery: No There are no social concerns with this patient. Prescription drug management Prescriptions will include symptomatic care Patient's prior external medical records from other ER visits were reviewed by me as indicated. Prior testing and results from previous visits were reviewed. Prior tests were taken into account with medical decision making and resource utilization, independent historian/historians were used to obtain complete medical history. I independently interpreted the test that were performed, results were reviewed by me and considered findings on radiology if ordered. Medical management and examination interpretation discussions were had by me with other qualified healthcare professionals as indicated for the patient's care. ED Course Orders Procedure Category Date Status Time Cbc With Differential LAB 04/29/25 Complete 16:08 Basic Metabolic Panel LAB 04/29/25 Complete 16:08 Lipase LAB 04/29/25 Complete 16:08 Hepatic Function Panel LAB 04/29/25 Complete 16:08 Morphine 4mg Syg PHA 04/29/25 Complete (Morphine 4mg Syg) 17:30 Vital Signs Date Time Temp Pulse Resp B/P (MAP) Pulse Ox O2 Delivery O2 Flow Rate FiO2 04/29/25 15:30 77 19 181/79 97 Room Air* 0 21 04/29/25 15:22 98.4 100 18 90/65 97 DX & DISP Disposition: Inpatient Decision to Admit Date: Apr 29, 2025 Departure Impression: Primary Impression: Liver cirrhosis Additional Impression: Ascites Condition: Stable Referrals: HARDY HENDERSON MD (PCP) I performed the substantive portion of the visit. I have reviewed and personally made and approve the management plan that is documented in the notes by myself or the [facility]. I acknowledge full responsibility for the patient's management plan. MATTHEW SINCLAIR Apr 29, 2025 17:31
--- NOTE | 2025-04-29 18:46 | NUR ---
PT ELOPED FROM FACILITY. STATED FRUSTRATION AND DEMANDED A BED UPSTAIRS. SIL ZELAYA HOSPITALIST MADE AWARE.
[2025-04-29] MEDS ORDERED: SPIRONOLACTONE 25 MG TAB PO SCH (21:00)
== END 2025-04-29 18:00 | disposition left against medical advice (07) | DRG 433 ==
LOC: EDH 15:20 → EDHIP 17:09
PROVIDERS: ADMIT Internal Medicine; ATTEND Internal Medicine
DX: K74.60 Unspecified cirrhosis of liver (principal); R18.8 Other ascites; D64.9 Anemia, unspecified; D69.6 Thrombocytopenia, unspecified; E11.65 Type 2 diabetes mellitus with hyperglycemia; E78.00 Pure hypercholesterolemia, unspecified; I16.0 Hypertensive urgency; J45.909 Unspecified asthma, uncomplicated; K76.9 Liver disease, unspecified; E11.22 Type 2 diabetes mellitus with diabetic chronic kidney disease; N18.30 Chronic kidney disease, stage 3 unspecified; Z91.199 Patient's noncompliance with other medical treatment and regimen due to unspecified reason; Z79.899 Other long term (current) drug therapy
CPT/HCPCS: 36415; 80048; 80076; 83690; 85025; 99285; G0378

== ENCOUNTER 2025-06-02 16:36 | Inpatient (IN) | payer MEDICARE ==
[~2025-06-02] VITALS: Ht 162.6 cm; Wt 52.1 kg
[~2025-06-02 16:36] MED LIST changes: +AEC81 PO; +BRESALTEC IH; +ERGO500093 PO; +FURO40TA5 PO; -GADOTERATE MEGLUMINE 10 MMOL/20 ML VIAL IV ONE; +HYDR-3421 PO; +METO-408 PO; +OXYC10TA48 PO; +PANT40TA54 PO; +SPIR50TA5 PO
--- NOTE | 2025-06-02 17:10 | NUR ---
PT HAS ABD DRAIN THAT APPEARS CLOUDY WITH NOTICEABLE PARTICULATES
[2025-06-02 17:12] LABS: IMMATURE GRANULOCYTE ABSOLUTE 0.07 K/uL (0-1); NUCLEATED RED BLOOD CELLS 0.0 % (0.0-0.19); PLATELET COUNT (AUTO) 190 K/uL (130-400); RED BLOOD CELL COUNT(AUTO) 3.46 MIL/uL (4.50-6.20); RED CELL DISTRIBUTION WIDTH 13.6 % (11.0-15.5); WHITE BLOOD COUNT (AUTO) 11.2 K/uL (4.8-10.8)
--- NOTE | 2025-06-02 17:13 | ERN ---
General Chief Complaint: Altered Mental Status Stated Complaint: AMS Time Seen by MD: 17:11 History of Present Illness Initial Comments 54-year-old male came in for altered mental status. Patient states that he has been having abdominal discomfort some nauseousness and no vomiting. Patient also feels generalized body weakness. Allergies: Coded Allergies: iodine (Unverified Allergy, Severe, SWELLING, 07/05/24) Home Meds Reported Medications Aspirin (ASPIRIN 81 MG ECTAB) 81 Mg Ectab, 81 MG PO DAILY, TAB.EC 04/29/25 [bresaltec] No Conflict Check, 2 PUFF IH AD PRN for SHORTNESS OF BREATH 04/29/25 Pantoprazole Sodium (Pantoprazole Sodium) 40 Mg Tablet.dr, 40 MG PO AM, TAB 04/29/25 Metoprolol Succinate (Metoprolol Succinate) 25 Mg Tab.er.24h, 25 MG PO AM, TAB 04/29/25 Hydroxyzine HCl (Hydroxyzine HCl) 25 Mg Tablet, 25 MG PO TID PRN for itching, TAB 04/29/25 Furosemide (Furosemide) 40 Mg Tablet, 40 MG PO HS, TAB 04/29/25 Spironolactone (Spironolactone) 50 Mg Tablet, 50 MG PO BID, TAB 04/29/25 Ergocalciferol (Vitamin D2) (Vitamin D2) 1,250 Mcg (67885 Unit) Capsule, 1250 MCG PO wed, CAP 04/29/25 Oxycodone HCl (Oxycodone HCl) 10 Mg Tablet, 10 MG PO TID PRN for PAIN, TAB 04/29/25 Past Medical History Past Medical History: Diabetes-Type II, Hypertension, Other Medical History Other: CIRRHOSIS Past Surgical History: Unknown Surgical History Other: ABD HERNIA REPAIR Family History Family History: Negative ROS Dictation Altered mental status Physical Exam General Appearance: (+) no apparent distress Orientation: (+) disoriented Neck: (+) normal inspection, (+) supple Respiratory: (+) chest non-tender, (+) lungs clear Heart: (+) regular, (+) no gallop Vascular: (+) no edema, (+) normal peripheral pulse Gastrointestinal: (+) soft, (+) non-tender, (+) no organomegaly, (+) bowel sound present Back: (+) normal inspection Extremities: (+) normal range of motion, (+) non-tender Results Laboratory and Microbiology Lab and Micro Result Laboratory Tests Test 06/02/25 17:02 06/02/25 17:15 06/02/25 18:43 White Blood Count 11.2 K/uL (4.8-10.8) H Red Blood Count 3.46 MIL/uL (4.50-6.20) L Hemoglobin 11.3 g/dL (14.0-18.0) L Hematocrit 34.8 % (42-54) L Mean Corpuscular Volume 100.6 fL (79-99) H Mean Corpuscular Hemoglobin 32.7 pg (27.0-33.0) Mean Corpuscular Hemoglobin Concent 32.5 g/dL (32.0-36.0) Red Cell Distribution Width 13.6 % (11.0-15.5) Platelet Count 190 K/uL (130-400) Mean Platelet Volume 12.1 fL (7.5-10.5) H Immature Granulocyte % (Auto) 0.6 % (0-1) Neutrophils (%) (Auto) 78.6 % (40.0-77.0) H Lymphocytes (%) (Auto) 9.1 % (21.0-51.0) L Monocytes (%) (Auto) 8.7 % (3.0-13.0) Eosinophils (%) (Auto) 2.7 % (0.0-8.0) Basophils (%) (Auto) 0.3 % (0.0-5.0) Neutrophils # (Auto) 8.8 K/uL (1.8-7.7) H Lymphocytes # (Auto) 1.0 K/uL (1.0-4.8) Monocytes # (Auto) 1.0 K/uL (0.1-1.0) Eosinophils # (Auto) 0.30 K/uL (0.00-0.70) Basophils # (Auto) 0.03 K/uL (0.00-0.20) Absolute Immature Granulocyte (auto 0.07 K/uL (0-1) Nucleated Red Blood Cells 0.0 % (0.0-0.19) White Cell Morphology Comment See comments Prothrombin Time 10.7 SEC (9.6-11.6) Prothromb Time International Ratio 1.01 (0.85-1.15) Activated Partial Thromboplast Time 33.0 SEC (26.3-35.5) Sodium Level 131 mmol/L (136-145) L Potassium Level 6.1 mmol/L (3.5-5.1) *H Chloride Level 103 mmol/L (101-111) Carbon Dioxide Level 22 mmol/L (21-32) Blood Urea Nitrogen 40 mg/dL (7-18) H Creatinine 2.2 mg/dL (0.5-1.3) H Glomerular Filtration Rate Calc 35 mL/min (>90) Random Glucose 160 mg/dL (70-105) H Lactic Acid Level 2.5 mmol/L (0.8-2.5) Total Calcium 7.8 mg/dL (8.5-10.1) L Total Bilirubin 2.5 mg/dL (0.2-1.0) H Direct Bilirubin 1.9 mg/dL (0.0-0.3) H Aspartate Amino Transf (AST/SGOT) 114 U/L (10-37) H Alanine Aminotransferase (ALT/SGPT) 54 U/L (12-78) Alkaline Phosphatase 911 U/L (50-136) *H Ammonia 51 umol/L (11-32) H Total Creatine Kinase 94 U/L (21-232) Troponin I High Sensitivity 13 ng/L (4-75) Total Protein 6.8 g/dL (6.0-8.3) Albumin 1.2 g/dL (3.5-5.0) L Lipase 76 U/L (16-77) Procalcitonin 0.47 ng/mL (0.05-0.5) Serum Alcohol < 3 mg/dL (0-10) Influenza Type A Antigen Negative For Type A Influenza Type B Antigen Negative For Type B SARS-CoV-2, RNA, NAAT NEGATIVE SARS CoV-2 Whole Blood Glucose 116 MG/DL (70-110) H Labs Reviewed?: Yes EKG/XRAY/US/CT/MRI CT Scan Comment IMAGING REPORT Signed PATIENT: ROCHELLE BARBER MR#: [id number] : 1970 SEX: M AGE: 54 LOCATION: [facility] ORDER [id number] STATUS: REG REPORT#: [id number] SERVICE [id number] REASON: Altered mental status ORDERING PHYSICIAN: DENNIS CHONG MD PROCEDURE: HEAD WO - CT HEAD/BRAIN W/O CONTRAST EXAM: CT Head Without IV contrast. CLINICAL HISTORY: Altered mental status TECHNIQUE: Axial computed tomography images of the head/brain without intravenous contrast. COMPARISON: None provided. FINDINGS: BRAIN: No evidence of acute hemorrhage. No mass lesion. No CT evidence for acute territorial infarct. No midline shift or extra-axial collections. VENTRICLES: No hydrocephalus. ORBITS: The orbits are unremarkable. SINUSES AND MASTOIDS: The paranasal sinuses and mastoid air cells are clear. BONES: No fracture. SOFT TISSUES: Unremarkable. IMPRESSION: No acute intracranial abnormality. /[place] DICTATED BY: NERIS LEMUS MD DATE: 06/02/251904 ELECTRONICALLY SIGNED BY: NERIS LEMUS MD DATE: 06/02/251904 MDM MDM: Differential diagnosis: Metabolic encephalopathy, generalized body weakness, altered mental status Rationale: Tests considered and ordered secondary to shared decision making include: labs, ECG and radiology Previous outside records reviewed: Old ER visits. Risk of complication and/or morbidity or mortality of patient management: None Medications-Per medication reconciliation Need for hospitalization: Patient does meet criteria for hospitalization. Need for emergency major/minor surgery: No There are no social concerns with this patient. Prescription drug management Prescriptions will include symptomatic care Patient's prior external medical records from other ER visits were reviewed by me as indicated. Prior testing and results from previous visits were reviewed. Prior tests were taken into account with medical decision making and resource utilization, independent historian/historians were used to obtain complete medical history. I independently interpreted the test that were performed, results were reviewed by me and considered findings on radiology if ordered. Medical management and examination interpretation discussions were had by me with other qualified healthcare professionals as indicated for the patient's care. Patient is a ED Course Orders Procedure Category Date Status Time 12 Lead Ekg Tracing- EKG 06/02/25 Logged Technical 16:56 Cbc With Differential LAB 06/02/25 Complete 16:56 Basic Metabolic Panel LAB 06/02/25 Complete 16:56 Ammonia LAB 06/02/25 Complete 16:56 Alcohol, Blood LAB 06/02/25 Complete 16:56 Covid Rna Naat LAB 06/02/25 Complete 16:56 Creatine Kinase, Total LAB 06/02/25 Complete 16:56 Drug Screen Urine LAB 06/02/25 Logged 16:56 Hepatic Function Panel LAB 06/02/25 Complete 16:56 Influenza Type A & B, LAB 06/02/25 Complete Rapid 16:56 Lactic Acid LAB 06/02/25 Complete 16:56 Lipase LAB 06/02/25 Complete 16:56 Procalcitonin LAB 06/02/25 Complete 16:56 Pt And Ptt LAB 06/02/25 Complete 16:56 Troponin I High LAB 06/02/25 Complete Sensitivity 16:56 Urinalysis LAB 06/02/25 Logged W/Microscopic 16:56 Chest 1vw RAD 06/02/25 Taken 16:56 Ct Head/Brain W/O CT 06/02/25 Resulted Contrast 16:56 Ct Abdomen/Pelvis W/O CT 06/02/25 Taken Contrast 17:07 Lactulose 20 Gm/30 Ml PHA 06/02/25 Complete Udcup (Constulose 17:30 Calcium Gluc 1gm PHA 06/02/25 In Process (Calcium Gluc 1gm 18:00 0.9%Nacl 50ml (Ns PHA 06/02/25 In Process 50ml) 18:00 Insulin Regular, PHA 06/02/25 Complete Human 3ml (Humulin R 18:00 Dextrose 50%-Water PHA 06/02/25 Complete (D50w) 18:00 Sodium Bicarb 50meq PHA 06/02/25 Complete 50ml Vial (Sodium Bi 18:00 0.9%Nacl 1000ml (Ns PHA 06/02/25 Logged 1000ml) 19:30 Current Medications Medications (Trade) Dose Ordered Sig/Suresh Route PRN Reason Start Time Stop Time Status Last Admin Dose Admin Calcium Gluconate (Calcium Gluc 1gm Vial) 1 gm PROTOCOL IVPB 06/02/25 18:00 07/02/25 17:59 Dextrose (D50w) 50 ml ONCE ONCE IV 06/02/25 18:00 06/02/25 18:01 DC 06/02/25 18:37 Insulin Human Regular (humuLIN R 100 UNIT/ML 3ML) 10 unit ONCE ONCE IV 06/02/25 18:00 06/02/25 18:01 DC 06/02/25 19:21 Lactulose (Constulose 20gm/ 30ml Udcup) 200 gm ONCE ONCE OK 06/02/25 17:30 06/02/25 17:35 DC 06/02/25 18:43 Sodium Bicarbonate (Sodium Bicarb 50meq 50ml Vial) 50 meq ONCE ONCE IV 06/02/25 18:00 06/02/25 18:01 DC 06/02/25 18:37 Sodium Chloride 1,000 ml @ 0 mls/hr ONCE ONCE IV 06/02/25 19:30 06/02/25 19:31 UNV Sodium Chloride (NS 50ml) 50 ml AD IV 06/02/25 18:00 07/02/25 17:59 Vital Signs Date Time Temp Pulse Resp B/P (MAP) Pulse Ox O2 Delivery O2 Flow Rate FiO2 06/02/25 19:06 111 22 175/50 98 Room Air* 0 21 06/02/25 16:52 104 20 158/70 100 Room Air* 0 21 06/02/25 16:37 100 16 142/77 98 Room Air 0 DX & DISP Disposition: Inpatient Decision to Admit Time: 19:28 Departure Impression: Primary Impression: Metabolic encephalopathy Additional Impressions: Altered mental status, Weakness, Failure to thrive, Hyperkalemia Condition: Stable Referrals: HARDY HENDERSON MD (PCP) DENNIS CHONG MD Jun 02, 2025 17:13 TRACEE ASHTON MD Jun 02, 2025 19:19
[2025-06-02 17:20] LABS: INR 1.01 (0.85-1.15)
[2025-06-02 17:35] LABS: ASPARTATE AMINOTRANSFERASE 114 U/L (10-37); CREATINE KINASE, TOTAL 94 U/L (21-232); CREATININE 2.2 mg/dL (0.5-1.3); GLOMERULAR FILTR. RATE CALC 35 mL/min (>90); GLUCOSE,RANDOM 160 mg/dL (70-105); SODIUM SERUM 131 mmol/L (136-145); TOTAL PROTEIN, SERUM 6.8 g/dL (6.0-8.3); UREA NITROGEN, BLOOD 40 mg/dL (7-18)
[2025-06-02 17:47] LABS: ALCOHOL, BLOOD < 3 mg/dL (0-10)
[2025-06-02 17:52] LABS: SARS-CoV-2, RNA, NAAT NEGATIVE SARS CoV-2 (NEGATIVE)
[2025-06-02 17:57] LABS: INFLUENZA TYPE A Negative For Type A (NEGATIVE); INFLUENZA TYPE B Negative For Type B (NEGATIVE)
--- NOTE | 2025-06-02 18:06 | HMCIMG ---
EXAM: CT Head Without IV contrast. CLINICAL HISTORY: Altered mental status TECHNIQUE: Axial computed tomography images of the head/brain without intravenous contrast. COMPARISON: None provided. FINDINGS: BRAIN: No evidence of acute hemorrhage. No mass lesion. No CT evidence for acute territorial infarct. No midline shift or extra-axial collections. VENTRICLES: No hydrocephalus. ORBITS: The orbits are unremarkable. SINUSES AND MASTOIDS: The paranasal sinuses and mastoid air cells are clear. BONES: No fracture. SOFT TISSUES: Unremarkable. IMPRESSION: No acute intracranial abnormality. /[place]
[2025-06-02] MEDS: DEXTROSE 50%-WATER 50 ML DISP.SYRIN IV ONE (18:37)
[2025-06-02] MEDS: SODIUM BICARB 50MEQ 50ML VIAL IV ONE (18:37)
[2025-06-02] MEDS: LACTULOSE 20 GM/30 ML UDCUP PR ONE (18:43)
[2025-06-02] MEDS: CALCIUM GLUC 1GM/10ML VIAL IVPB SCH (19:27)
[2025-06-02] MEDS: 0.9%NACL 1000ML 1,000 ML IV ONE (19:28)
[2025-06-02] MEDS: 0.9%NACL 50ML IV SCH (19:28)
--- NOTE | 2025-06-02 19:38 | HMCIMG ---
EXAM: CR Chest, 1 View. CLINICAL HISTORY: Shortness of breath COMPARISON: None provided. FINDINGS: LUNGS: There is no mass, infiltrate, or acute pulmonary abnormality. PLEURAL SPACES: No pleural effusion or pneumothorax. MEDIASTINUM: The cardiomediastinal silhouette is within normal limits. BONES: No acute osseous abnormality. IMPRESSION: No acute cardiopulmonary pathology is evident. /[place]
--- NOTE | 2025-06-02 19:52 | HMCIMG ---
EXAMINATION: CT Abdomen and Pelvis Without IV contrast CLINICAL HISTORY: Patient presents with abdominal pain. TECHNIQUE: Axial computed tomography images of the abdomen and pelvis without intravenous contrast. CONTRAST: No IV contrast. COMPARISON: CT abdomen and pelvis dated July 19, 2024. FINDINGS: LUNG BASES: The lung bases appear clear. No pleural effusions are seen. LIVER: The liver demonstrates mildly nodular contour concerning for cirrhosis. Few ill-defined hypodense lesions scattered in the right hepatic lobe, largest measuring approximately 4.4 x 5.0 x 5.6 cm; limited evaluation due to non-contrast technique. GALLBLADDER AND BILE DUCTS: The gallbladder is distended. A 1 cm dependent hyperdense focus is seen within the gallbladder lumen, concerning for gallbladder calculus. No biliary ductal dilatation. PANCREAS: Unremarkable. SPLEEN: Enlarged, measuring 12 cm. ADRENAL GLANDS: Left adrenal nodule measuring 2.5 x 1.8 x 1.8 cm. Right adrenal gland is unremarkable. KIDNEYS, URETERS, AND BLADDER: The kidneys are within normal limits. No hydronephrosis or hydroureter. No urinary calculi. STOMACH AND BOWEL: Unremarkable appearance of the stomach and bowel. No evidence of bowel obstruction. No findings suggesting enteritis or colitis. APPENDIX: No evidence of acute appendicitis on CT examination. PERITONEUM: Large volume ascites. Drain traverses the right anterolateral abdominal wall in the right lumbar region with its tip located in the right lower quadrant within the ascitic fluid. Patchy fat stranding within the central mesentery and omentum. LYMPH NODES: No lymphadenopathy is evident. REPRODUCTIVE: The prostate gland is mildly enlarged. VASCULATURE: Atheromatous calcifications in the aorta without evidence of aneurysm. BONES: Multilevel mild degenerative changes in the spine. No acute osseous pathology. IMPRESSION: Large volume ascites with drain in the right lower quadrant. Hepatic contour nodularity concerning for cirrhosis. New ill-defined hypodense hepatic lesions in the right lobe, largest measuring 4.4 x 5.0 x 5.6 cm; recommend further evaluation with contrast-enhanced imaging. 1 cm dependent hyperdense focus in the gallbladder lumen concerning for gallbladder calculus. Splenomegaly measuring 12 cm. Left adrenal nodule measuring 2.5 x 1.8 x 1.8 cm. Patchy fat stranding within the central mesentery and omentum. Mildly enlarged prostate gland. /[place]
--- NOTE | 2025-06-02 21:30 | HP ---
[facility] HISTORY AND PHYSICAL Date of Service: Jun 02, 2025 Time of Service: 21:29 PCP: Dr. Francisco Thurman Attending/supervising physicians: Dr. Duffy and Dr. Martine Cunningham HISTORY OF PRESENT ILLNESS: Mr. Hummel is a 54-year-old male with a history of diabetes -type II, cirrhosis, and hypertension who presented with [facility] for evaluation of altered mental status, abdominal discomfort, some nauseousness, and GBW. The significant other denied vomiting, blood in the stool, hemoptysis, chest pain, shortness of breath, any other pain, problem or concern. VS: HR 100 bpm, RR 16 bpm, BP 142/77, 98% RA, 99.1 F. Labs: Potassium 6.1, Alkaline Phosphatase 911, Sodium 131, BUN 40, Creatinine 2.2, Random Glucose 160, Calcium 7.8, Total Bilirubin 2.5, Direct Bilirubin 1.9, AST 114, Ammonia 51, Albumin 1.2, Hematology: WBC 11.2, RBC 3.46, Hgb 11.3, Hct 34.8, MCV 100.6, MPV 12.1. Toxicology: Serum Alcohol < 3, Serology: Negative COVID, flu, strep swabs. Abdomen / Pelvis: Large volume ascites with drain in the right lower quadrant. Hepatic contour nodularity concerning for cirrhosis. New ill-defined hypodense hepatic lesions in the right lobe, largest measuring 4.4 x 5.0 x 5.6 cm; recommend further evaluation with contrast-enhanced imaging. 1 cm dependent hyperdense focus in the gallbladder lumen concerning for gallbladder calculus. Splenomegaly measuring 12 cm.Left adrenal nodule measuring 2.5 x 1.8 x 1.8 cm. Patchy fat stranding within the central mesentery and omentum. Mildly enlarged prostate gland. Head CT: No acute intracranial abnormality. Chest x-rays: No acute cardiopulmonary pathology is evident. In ED the patient received NS1 L bolus, sodium bicarbonate 50 mEq, insulin 10 units, calcium gluconate1 g, lactulose 200 g rectally. ED provider requested patient be admitted to the hospital with the diagnosis of metabolic encephalopathy, AMS, weakness, failure to thrive, hyperkalemia. I assessed the patient at bedside in room number ED 3. Significant other was at bedside. RN reports that earlier the patient was somnolent but is more awake now after the lactulose. The patient's breathing was even, unlabored, and in no distress. During my evaluation the patient's mentation had improved. He was asleep and woke up to touch. He was conversive and answered all questions appropriately. The patient denied abdominal pain, chest pain, shortness of breath, any other pain, problem or concern. I informed patient and significant other of labs, diagnostics, plan of care. They verbalized understanding and are in agreement with the plan. Plan and assessment are listed below. REVIEW OF SYSTEMS 12-point ROS reviewed with the patient. All pertinent positives mentioned above. Otherwise negative, noncontributory, non-pertinent. PAST MEDICAL HISTORY: As mentioned above PAST SURGICAL HISTORY: Abdominal hernia repair PAST SOCIAL HISTORY: Denied alcohol, tobacco, illicit drug use FAMILY HISTORY: Noncontributory Coded Allergies: iodine (Unverified Allergy, Severe, SWELLING, 07/05/24) PHYSICAL EXAM GENERAL APPEARANCE: The patient is awake, alert, and oriented, in no acute cardiopulmonary distress. NEUROLOGICAL: Cranial nerves II-XII grossly intact. Motor is 5/5 in bilateral upper and lower extremities proximal to distal. No sensory deficits. HEENT: Face is symmetric. Pupils are equal and reactive. Extraocular movements are intact. NECK: Supple. No JVD. No thyromegaly. No submental, submandibular, pre- /postauricular, occipital or supraclavicular lymphadenopathy. CHEST: Normal chest expansion. No Telemetry. LUNGS: Absence of any rales, rhonchi or any wheezing. CARDIOVASCULAR: Regular. S1 and S2 normal. No appreciable rubs, murmurs or gallops. ABDOMEN: Soft, nontender, and nondistended. There is no rebound, voluntary guarding, or rigidity. : Deferred. No Orourke. EXTREMITIES: Non-edematous and not cyanotic. No clubbing. Good capillary refill. SKIN: No skin breakdown. Vital Sign (Last 24 Hours) 06/02/25 20:05 Temp 98.8 Pulse 104 Resp 20 B/P (MAP) 144/85 Pulse Ox 100 O2 Delivery Room Air* O2 Flow Rate 0 FiO2 21 LABS: Laboratory: Test 06/02/25 18:43 06/02/25 17:15 06/02/25 17:02 Range/Units Whole Blood Glucose 116 H 70-110 MG/DL Influenza Type A Antigen Negative For Type A NEGATIVE Influenza Type B Antigen Negative For Type B NEGATIVE SARS-CoV-2, RNA, NAAT NEGATIVE SARS CoV-2 NEGATIVE White Blood Count 11.2 H 4.8-10.8 K/uL Red Blood Count 3.46 L 4.50-6.20 MIL/uL Hemoglobin 11.3 L 14.0-18.0 g/dL Hematocrit 34.8 L 42-54 % Mean Corpuscular Volume 100.6 H 79-99 fL Mean Corpuscular Hemoglobin 32.7 27.0-33.0 pg Mean Corpuscular Hemoglobin Concent 32.5 32.0-36.0 g/dL Red Cell Distribution Width 13.6 11.0-15.5 % Platelet Count 190 130-400 K/uL Mean Platelet Volume 12.1 H 7.5-10.5 fL Immature Granulocyte % (Auto) 0.6 0-1 % Neutrophils (%) (Auto) 78.6 H 40.0-77.0 % Lymphocytes (%) (Auto) 9.1 L 21.0-51.0 % Monocytes (%) (Auto) 8.7 3.0-13.0 % Eosinophils (%) (Auto) 2.7 0.0-8.0 % Basophils (%) (Auto) 0.3 0.0-5.0 % Neutrophils # (Auto) 8.8 H 1.8-7.7 K/uL Lymphocytes # (Auto) 1.0 1.0-4.8 K/uL Monocytes # (Auto) 1.0 0.1-1.0 K/uL Eosinophils # (Auto) 0.30 0.00-0.70 K/uL Basophils # (Auto) 0.03 0.00-0.20 K/uL Absolute Immature Granulocyte (auto 0.07 0-1 K/uL Nucleated Red Blood Cells 0.0 0.0-0.19 % White Cell Morphology Comment See comments Prothrombin Time 10.7 9.6-11.6 SEC Prothromb Time International Ratio 1.01 0.85-1.15 Activated Partial Thromboplast Time 33.0 26.3-35.5 SEC Sodium Level 131 L 136-145 mmol/L Potassium Level 6.1 *H 3.5-5.1 mmol/L Chloride Level 103 101-111 mmol/L Carbon Dioxide Level 22 21-32 mmol/L Blood Urea Nitrogen 40 H 7-18 mg/dL Creatinine 2.2 H 0.5-1.3 mg/dL Glomerular Filtration Rate Calc 35 >90 mL/min Random Glucose 160 H 70-105 mg/dL Lactic Acid Level 2.5 0.8-2.5 mmol/L Total Calcium 7.8 L 8.5-10.1 mg/dL Total Bilirubin 2.5 H 0.2-1.0 mg/dL Direct Bilirubin 1.9 H 0.0-0.3 mg/dL Aspartate Amino Transf (AST/SGOT) 114 H 10-37 U/L Alanine Aminotransferase (ALT/SGPT) 54 12-78 U/L Alkaline Phosphatase 911 *H 50-136 U/L Ammonia 51 H 11-32 umol/L Total Creatine Kinase 94 21-232 U/L Troponin I High Sensitivity 13 4-75 ng/L Total Protein 6.8 6.0-8.3 g/dL Albumin 1.2 L 3.5-5.0 g/dL Lipase 76 16-77 U/L Procalcitonin 0.47 0.05-0.5 ng/mL Serum Alcohol < 3 0-10 mg/dL Current Medications Medications (Trade) Dose Ordered Sig/Suresh Route PRN Reason Start Time Stop Time Status Last Admin Dose Admin Calcium Gluconate (Calcium Gluc 1gm Vial) 1 gm PROTOCOL IVPB 06/02/25 18:00 07/02/25 17:59 06/02/25 19:27 1 GM Sodium Chloride (NS 50ml) 50 ml AD IV 06/02/25 18:00 07/02/25 17:59 06/02/25 19:28 50 ML DIAGNOSTICS / RADIOLOGY: [ ] ASSESSMENT: Acute hepatic encephalopathy, POA Hyperammonemia, POA Large volume ascites with drain in the right lower quadrant, per CT on 06/02/2025 Cirrhosis of the liver New ill-defined hypodense hepatic lesions in the right lobe, largest measuring 4.4 x 5.0 x 5.6 cm, per CT on 06/02/2025 GB W/frailty/debility/failure to thrive 1 cm dependent hyperdense focus in the gallbladder lumen, per CT on 06/02/2025 r/o gallbladder calculus Transaminitis/ critically elevated alk-phos, POA Hypoalbuminemia, POA Leukocytosis, POA Electrolyte derangement (hyponatremia, hypocalcemia, severe hyperkalemia), POA Acute on chronic kidney disease stage IIIB, GFR 35, POA (GFR 35-41 on 04/2025) Diabetes mellitus with hyperglycemia, POA Anemia of chronic disease Hypertension Splenomegaly measuring 12 cm, per CT on 06/02/2025 Left adrenal nodule measuring 2.5 x 1.8 x 1.8 cm, per CT on 06/02/2025 Patchy fat stranding within the central mesentery and omentum, per CT on 06/02/2025 Mildly enlarged prostate gland, per CT on 06/02/2025 PLAN: -Admit to medical floor with telemetry monitoring and fall precautions. -Lactulose 20 g p.o. t.i.d.. -Trend ammonia level and liver enzymes q.6 hours x3 more sets. -I will hold on CT abdomen with contrast that was recommended by radiologist due to patient's low GFR. -Obtain a right upper quadrant sonogram for evaluation of gallstones. -Obtain UA for urinalysis and UDS. -Avoid nephrotoxins and liver toxic medications. -Avoid narcotics and sedation to avoid increased lethargic/obtunded. -Consult GI for large volume ascites with drain in right lower quadrant and new ill-defined hypodense hepatic lesions of the right lobe. -Monitor liver function and renal function. -Monitor electrolytes and treat accordingly. -Antibiotic therapy: Zosyn IV empiric treatment -Neuro checks Q4 hours. -PRN medications for: Pain management, fever, hypertension, N/V, constipation. -Glucometer checks AC & HS needed with insulin regular sliding scale coverage as needed. -Blood pressure checks every 4 hours and as needed. -Reconcile home medications once available. -AM labs. -GI and DVT prophylaxis -Further plan/orders per hospitalization course. ADVANCED CARE PLANNING 1. Which of the following were discussed? Hospice Care - No Therapeutic options - Yes Advance Directives - Yes Other discussions - 2. Discussed with who? The patient 3. Voluntary nature of this service was explained to the patient? Yes 4. Amount of time spent - __ Over 35 minutes 5. Reviewed by Physician? (if this service was performed by BEBETO) Yes ATTESTATION BY PHYSICIAN I have seen and examined the patient. I reviewed the documentation, medical decision making, and treatment plan as noted by the BEBETO above. I agree with the findings and plan of care. JOSE RAUL MAJOR [facility] Jun 02, 2025 21:30
--- NOTE | 2025-06-02 22:00 | NUR ---
FAMILY STATES THEY DONT HAVE MEDS AT THIS TIME, WILL BRING THEM SOON THEY CAN
[2025-06-02 23:30] VITALS: BP 166/88; PULSE 114; RESP 18; TEMP 97.6; O2SAT 100
--- NOTE | 2025-06-02 23:30 | NUR ---
ADMISSION: PT RECEIVED VIA STRETCHER FROM ER, AT BEDSIDE. PT IS NOW AWAKE/ALERT/ORIENTED X 3. PT WAS BROUGHT TO THE ER FOR ALTERED MENTAL STATUS. PT HAS HISTORY OF CIRRHOSIS, HTN, DM. TELE# 36 PLACED TO CHEST WALL, HR-ST 114. VOICES NO CHEST PAIN/DISCOMFORTS AT THE TIME. STATES THEY DID NOT BRING IN HOME MEDICATIONS BUT WILL BRING THEM IN AM. RIGHT LOWER QUADRANT DRAIN CLAMPED AT THIS TIME. ORIENTED TO ROOM, SURROUNDINGS AND CALL LIGHT. ENCOURAGED TO USE CALL LIGHT FOR ASSISTANCE, CALL LEAHY WITHIN REACH. S/R UP X 2, BED ALARM IN PLACE.
[2025-06-03] MEDS ORDERED: LACTULOSE 20 GM/30 ML UDCUP PO PRN (02:00)
[2025-06-03 02:03] LABS: ASPARTATE AMINOTRANSFERASE 105.0 U/L (10-37); CREATININE 2.0 mg/dL (0.5-1.3); GLOMERULAR FILTR. RATE CALC 39.0 mL/min (>90); GLUCOSE,RANDOM 125.0 mg/dL (70-105); SODIUM SERUM 136.0 mmol/L (136-145); TOTAL PROTEIN, SERUM 6.5 g/dL (6.0-8.3); UREA NITROGEN, BLOOD 37.0 mg/dL (7-18)
[2025-06-03 04:00] VITALS: BP 113/98; PULSE 106; RESP 18; TEMP 98
[2025-06-03 04:25] LABS: NUCLEATED RED BLOOD CELLS 0.0 % (0.0-0.19); PLATELET COUNT (AUTO) 168.0 K/uL (130-400); RED BLOOD CELL COUNT(AUTO) 2.97 MIL/uL (4.50-6.20); RED CELL DISTRIBUTION WIDTH 13.7 % (11.0-15.5); WHITE BLOOD COUNT (AUTO) 11.0 K/uL (4.8-10.8)
[2025-06-03] MEDS: LACTULOSE 20 GM/30 ML UDCUP PO SCH (04:43)
[2025-06-03] MEDS ORDERED: 0.9%NACL 50ML IV SCH (05:00)
[2025-06-03 05:02] LABS: ASPARTATE AMINOTRANSFERASE 96.0 U/L (10-37); CREATININE 2.0 mg/dL (0.5-1.3); GLOMERULAR FILTR. RATE CALC 39.0 mL/min (>90); GLUCOSE,RANDOM 130.0 mg/dL (70-105); PHOSPHORUS 4.2 mg/dL (2.5-4.9); SODIUM SERUM 134.0 mmol/L (136-145); TOTAL PROTEIN, SERUM 6.3 g/dL (6.0-8.3); UREA NITROGEN, BLOOD 36.0 mg/dL (7-18)
[2025-06-03] MEDS: ZOSYN 3.375GM +NS 50ML IVPB SCH (05:06)
--- NOTE | 2025-06-03 07:00 | EKG ---
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
[2025-06-03 07:42] VITALS: BP 144/70; PULSE 107; RESP 16; TEMP 98.1
[2025-06-03 08:00] VITALS: O2SAT 100
[2025-06-03] MEDS: CALCIUM GLUC 1GM 1 GM in 0.9%NACL 50ML 50 ML IV SCH (08:34)
--- NOTE | 2025-06-03 09:14 | NUR ---
DCP: RETURN HOME WITH [facility] (decision pending) Sw met with pt's Shweta Hummel [phone]. Per pt on SSD for cirrhosis. assists pt with bathing dressing and grooming. Pt uses a cane, has O2, shower chair and w/c thru [facility]. states MD set up hospice about 3 months about related to pt's [place] catheter. voiced not understanding what program was. Sw educated on hospice services and revoking for "treatment". became emotional, states she did not know that was what program was for. states she is not sure if she will return to [place], did not wan to sign consent. PCP is Francisco Thurman, uses [facility] [address] for rx needs. Sw spoke to Tyler at [facility] and informed of above. Per Tyler pt has been on services 6 wks. Nurses have been seeing pt 3-4x a week for catheter care. Bill to revisit with today and answer any questions she might have. Tyler to update after visit. Addendum: 06/03/25 at 0922 by CHASE GILL Amended: Links added.
[2025-06-03 09:15] LABS: APPEARANCE,URINE CLEAR (CLEAR); GLUCOSE, URINE (UA) NEGATIVE (NEGATIVE); LEUKOCYTE ESTERASE ,URINE NEGATIVE Leu/uL (NEGATIVE); NITRATE,URINE NEGATIVE (NEGATIVE); OCCULT BLOOD,URINE NEGATIVE (NEGATIVE)
[2025-06-03 09:17] LABS: SQUAMOUS EPITHELIAL CELL,UR RARE /HPF (0-2)
[2025-06-03 09:22] LABS: AMPHET/METH SCREEN,URINE NEGATIVE (NEGATIVE); BARBITURATE SCREEN, URINE NEGATIVE (NEGATIVE); CANNABINOID SCREEN,URINE NEGATIVE (NEGATIVE); COCAINE SCREEN,URINE POSITIVE (NEGATIVE)
--- NOTE | 2025-06-03 09:37 | NUR ---
[facility] [phone] Per Bill pt has been on services since 05/09. He will come by after 11 to meet with to re educate on services. Pt lives at home with and 2 grandkids 8 and 10. They own their home and receive $800 in food stamps.
[2025-06-03] MEDS ORDERED: BRESALTEC IH PRN (10:30)
[2025-06-03 10:58] LABS: ASPARTATE AMINOTRANSFERASE 110.0 U/L (10-37); CREATININE 1.9 mg/dL (0.5-1.3); GLOMERULAR FILTR. RATE CALC 41.0 mL/min (>90); GLUCOSE,RANDOM 127.0 mg/dL (70-105); SODIUM SERUM 134.0 mmol/L (136-145); TOTAL PROTEIN, SERUM 6.5 g/dL (6.0-8.3); UREA NITROGEN, BLOOD 35.0 mg/dL (7-18)
--- NOTE | 2025-06-03 11:48 | NUR ---
DCP: HOME WITH [facility] Sw present when Cristino PLANT PROTECTION OFFICER in room with family. Per Cristino, pt was positive for cocaine a admission. Family appeared shocked and pt did not admit or deny. to address this with pt privately. signed consent for referral back to [facility] [place]
[2025-06-03] MEDS ORDERED: COMPOUND IV MISC 1 EACH IVSOLN MISC PRN (12:00)
--- NOTE | 2025-06-03 12:19 | NUR ---
AMA_ [facility] WITH [facility] sw received call from Shweta. Pt wanting to leave AMA. Sw spoke to Billlinn at [facility], states they will accept pt if he leaves AMA. Sw faxed clinicals for pt to [facility], informed Bill no order will be given for AMA pt. [facility] to secure order from PCP. Monique Shabazz and Julia nurse made aware
[2025-06-03] MEDS ORDERED: CEFD300C3 PO (13:14)
[2025-06-03] MEDS ORDERED: Lactulose 20 Gm/30 Ml Udcup PO (13:14)
--- NOTE | 2025-06-03 13:20 | DS ---
Discharge Summary Hospital Course Summary: DATE OF ADMISSION:[06/02/2025] DATE OF DISCHARGE:[06/03/2025] DISPOSITION:[Home with hospice] CONDITION:[Hospice patient] CONSULTANTS:[GI] FOLLOW UP APPOINTMENTS: PCP one week. GI as needed [] PROCEDURES:[None] IMAGING: report attached to summary MICROBIOLOGY: report attached to summary ACTIVITY:[One-person assist] HOME MEDICATIONS: see [facility] NEW MEDICATIONS:[Cefdinir, lactulose] EMERGENCY INSTRUCTIONS: The patient was instructed to present to the nearest Emergency departmentr or call 911 once their symptoms will return or worsen Junior Media Buyer(s): Patient is 54 years old male who came to emergency department for evaluation of altered mental status, abdominal discomfort nausea and generalized body weakness. On admission patient denied vomiting, blood in stool all hemoptysis, chest pain, shortness of breath or any other pain. As per family members and the patient patient has a hospice care at home. Patient was diagnosed with liver cirrhosis and already has pigtail drain placed in the abdomen to withdrawal the a sciatic fluid. On admission patient's ammonia level was 51. Patient was also positive for cocaine. Head CT negative. CT abdomen/pelvis s howed large ascites with a drain in the left lower quadrant, cirrhotic new hypodense hepatic lesions right lobe. Gallbladder calculus. Mild enlarged prostate gland . Nurse practitioner explained to the patient and family care of hospice outpatient at home. Family stated that they do not want to proceed with surgeon regarding gallbladder calculus as well date on proceed with any GI workup anymore due to altered mental status already resolved which was probably due to ammonia level of 51 and cocaine positive in blood. Patient receive lactulose on admission. Today patient's family is requesting to be discharged home back to hospice. Patient will be discharged with a lactulose and cefdinir due to WBCs on admission elevated. Another teaching regarding the hospice was performed to the patient and family. Patient to be discharged home. Follow up outpatient with the hospice care, PCP in one week. GI as needed. Surgeon as needed. Procedure(s): PHYSICAL EXAM GENERAL APPEARANCE: The patient is awake, alert, and oriented, in no acute cardiopulmonary distress. NEUROLOGICAL: Cranial nerves II-XII grossly intact. Motor is 5/5 in bilateral upper and lower extremities proximal to distal. No sensory deficits. HEENT: Face is symmetric. Pupils are equal and reactive. Extraocular movements are intact. NECK: Supple. No JVD. No thyromegaly. No submental, submandibular, pre- /postauricular, occipital or supraclavicular lymphadenopathy. CHEST: Normal chest expansion. No Telemetry. LUNGS: Absence of any rales, rhonchi or any wheezing. CARDIOVASCULAR: Regular. S1 and S2 normal. No appreciable rubs, murmurs or gallops. ABDOMEN: Soft, nontender, and nondistended. There is no rebound, voluntary guarding, or rigidity. : Deferred. No Orourke. EXTREMITIES: Non-edematous and not cyanotic. No clubbing. Good capillary refill. SKIN: No skin breakdown. Assessment/Plan: ASSESSMENT: Acute hepatic encephalopathy, POA Hyperammonemia, POA Large volume ascites with drain in the right lower quadrant, per CT on 06/02/2025 Cirrhosis of the liver Toxicology positive for cocaine New ill-defined hypodense hepatic lesions in the right lobe, largest measuring 4.4 x 5.0 x 5.6 cm, per CT on 06/02/2025 GB W/frailty/debility/failure to thrive 1 cm dependent hyperdense focus in the gallbladder lumen, per CT on 06/02/2025 r/o gallbladder calculus Transaminitis/ critically elevated alk-phos, POA Hypoalbuminemia, POA Leukocytosis, POA Electrolyte derangement (hyponatremia, hypocalcemia, severe hyperkalemia), POA Acute on chronic kidney disease stage IIIB, GFR 35, POA (GFR 35-41 on 04/2025) Diabetes mellitus with hyperglycemia, POA Anemia of chronic disease Hypertension Splenomegaly measuring 12 cm, per CT on 06/02/2025 Left adrenal nodule measuring 2.5 x 1.8 x 1.8 cm, per CT on 06/02/2025 Patchy fat stranding within the central mesentery and omentum, per CT on 06/02/2025 Mildly enlarged prostate gland, per CT on 06/02/2025 Home Medications: Reported Medications Aspirin (ASPIRIN 81 MG ECTAB) 81 Mg Ectab, 81 MG PO DAILY, TAB.EC 04/29/25 [bresaltec] No Conflict Check, 2 PUFF IH AD PRN for SHORTNESS OF BREATH 04/29/25 Pantoprazole Sodium (Pantoprazole Sodium) 40 Mg Tablet.dr, 40 MG PO AM, TAB 04/29/25 Metoprolol Succinate (Metoprolol Succinate) 25 Mg Tab.er.24h, 25 MG PO AM, TAB 04/29/25 Hydroxyzine HCl (Hydroxyzine HCl) 25 Mg Tablet, 25 MG PO TID PRN for itching, TAB 04/29/25 Furosemide (Furosemide) 40 Mg Tablet, 40 MG PO HS, TAB 04/29/25 Spironolactone (Spironolactone) 50 Mg Tablet, 50 MG PO BID, TAB 04/29/25 Ergocalciferol (Vitamin D2) (Vitamin D2) 1,250 Mcg (48572 Unit) Capsule, 1250 MCG PO wed, CAP 04/29/25 Oxycodone HCl (Oxycodone HCl) 10 Mg Tablet, 10 MG PO TID PRN for PAIN, TAB 04/29/25 Time spent arranging discharge: 31-60 minutes ATTESTATION BY PHYSICIAN I have seen and examined the patient. I reviewed the documentation, medical decision making, and treatment plan as noted by the mid-level provider above. I agree with the findings and plan of care. Annalee Cunningham MD, KATARZYNA B ASSISTANT PRODUCTION MANAGER Jun 03, 2025 13:20
--- NOTE | 2025-06-03 14:12 | NUR ---
PATIENT DISCHARGED. 2 IVS TAKEN OUT WITH CATHETER INTACT. EDUCATION MATERIAL PROVIDED TO PATIENT WELL NEW MEDICATIONS. PATIENT TAKEN DOWNSTAIRS BY FLOOR WINDER.
[2025-06-03] MEDS ORDERED: SPIRONOLACTONE 25 MG TAB PO SCH (21:00)
[2025-06-04] MEDS ORDERED: ERGOCALCIFEROL (VITAMIN D2) 50,000 UNIT CAPSULE PO SCH (09:00)
[2025-06-04] MEDS ORDERED: ASPIRIN 81 MG EC TAB PO SCH (09:00)
--- NOTE | 2025-06-04 09:29 | HMCIMG ---
EXAMINATION: ULTRASOUND OF THE ABDOMEN (LIMITED) WITH COLOR DOPPLER. CLINICAL HISTORY: To rule out gall stones. COMPARISON: CT abdomen and pelvis without contrast dated 06/02/2025. TECHNIQUE: Real-time grayscale ultrasound images of the abdomen. In addition, color Doppler is medically necessary to perform in order to evaluate vascularity and blood flow. FINDINGS: Liver: Normal in caliber, the right hepatic lobe measures 12.9 cm in the craniocaudal dimension. There is coarse echotexture of the hepatic parenchyma and surface nodularity. There is no focal hepatic abnormality or intrahepatic biliary ductal dilatation. There is normal spectral Doppler of the main portal vein. Gallbladder: Within normal limits with normal wall thickness (0.3 cm). No hyperemia or pericholecystic free fluid. There is adherent echogenic focus that measures 0.9 cm at the fundus. Common bile duct is normal in caliber, measuring 0.6 cm. Pancreas: Obscured by overlying bowel gas. The right kidney is normal in caliber, the right kidney measures 9.2 x 4.9 x 4.2 cm in craniocaudal, AP, and transverse dimensions respectively. There is normal renal cortical thickness, and cortical echogenicity. There is no renal calculus or hydronephrosis. There is moderate fluid in the peritoneal cavity. IMPRESSION: Cirrhosis Gallbladder calculus. Moderate ascites. Previously demonstrated remainder of the gallbladder calculi are not visualized. /[place]
== END 2025-06-03 14:18 | disposition hospice, home (50) | DRG 442 ==
LOC: EDH 16:36 → EDHIP 21:16 → 4DH 23:30
PROVIDERS: ADMIT Internal Medicine; ATTEND Internal Medicine
DX: K76.82 Hepatic encephalopathy (principal); E87.1 Hypo-osmolality and hyponatremia; R18.8 Other ascites; N17.9 Acute kidney failure, unspecified; Z68.1 Body mass index [BMI] 19.9 or less, adult; D63.8 Anemia in other chronic diseases classified elsewhere; Z20.822 Contact with and (suspected) exposure to COVID-19; D72.829 Elevated white blood cell count, unspecified; E11.22 Type 2 diabetes mellitus with diabetic chronic kidney disease; E11.65 Type 2 diabetes mellitus with hyperglycemia; E27.8 Other specified disorders of adrenal gland; E87.5 Hyperkalemia; E88.09 Other disorders of plasma-protein metabolism, not elsewhere classified; I12.9 Hypertensive chronic kidney disease with stage 1 through stage 4 chronic kidney disease, or unspecified chronic kidney disease; K74.60 Unspecified cirrhosis of liver; K80.20 Calculus of gallbladder without cholecystitis without obstruction; N18.32 Chronic kidney disease, stage 3b; N40.0 Benign prostatic hyperplasia without lower urinary tract symptoms; R54 Age-related physical debility; R62.7 Adult failure to thrive; E83.51 Hypocalcemia; Z79.4 Long term (current) use of insulin; Z79.899 Other long term (current) drug therapy
CPT/HCPCS: 36415; 70450; 71045; 74176; 76705; 80048; 80053; 80076; 80305; 81001; 82105; 82140; 82550; 82948; 83036; 83605; 83690; 83735; 84100; 84145; 84443; 84484; 85025; 85027; 85610; 85730; 87635; 87804; 93005; 96374; 96375; 99285; G0378; J0612; J1815; J2543; J3490; J7070